=== PATIENT | male | born 1970 | race African-American/Black ===

== ENCOUNTER 2022-08-23 16:36 | Emergency (ER) | payer MEDICAID ==
[~2022-08-23] VITALS: Ht 177.8 cm; Wt 95.3 kg
[2022-08-23 16:40] VITALS: BP_SYST 163
--- NOTE | 2022-08-23 16:45 | NUR ---
Patient triaged and placed in waiting room. VSS and patient appears in no acute distress at this time. Accompanied by SELF, awaiting available bed, and MD notified of need for MSE.
--- NOTE | 2022-08-23 16:52 | NUR ---
PT STATES HE HAS HAD A COUGH FOR ABOUT A WEEK, HAS TAKEN UNKNOWN ANTIBIOTICS, STATES HE THINKS HE HAS PNEUMONIA. PT IS STAYING AT [facility] [place] FOR DETOX OFF METH AND COCAINE.
--- NOTE | 2022-08-23 19:46 | NUR ---
DR. TARANGO EXAMINING PATIENT IN TRIAGE
[2022-08-23] MEDS ORDERED: ALBMDI INH (19:52)
[2022-08-23] MEDS ORDERED: AUG875 PO (19:52)
[2022-08-23] MEDS ORDERED: GUAI-723 PO (19:52)
[2022-08-23] MEDS ORDERED: HYDROcodone/ACETAMIN 5-325 MG TAB (NORCO/ VICODIN) PO ONE (20:00)
[2022-08-23] MEDS ORDERED: ACETAMINOPHEN 500 MG TABLET PO ONE (20:00)
--- NOTE | 2022-08-23 20:00 | NUR ---
Patient to ER CHAIR 1 for evaluation.
--- NOTE | 2022-08-23 20:05 | NUR ---
PATIENT BROUGHT IN FROM [facility] COMPLAININGOF COUGH WITH LT SIDED CHEST WALL PAIN X 1 WEEK. DAILY SMOKER.
[2022-08-23] MEDS ORDERED: ALBUTEROL SULFATE 0.083% 2.5 MG/3 ML VIAL.NEB INH ONE (20:15)
--- NOTE | 2022-08-23 20:23 | NUR ---
RT at bedside administering breathing treatments.
[2022-08-23 20:49] VITALS: BP_SYST 142
--- NOTE | 2022-08-23 20:50 | NUR ---
Patient given written and verbal discharge instructions and verbalizes understanding. ER MD discussed with patient the results and treatment provided. Patient in stable condition. ID arm band removed. Rx of albuterol and augmentin given. Patient educated on pain management and to follow up with PMD. Pain Scale 0/10 Opportunity for questions provided and answered. Medication side effect fact sheet provided.
== END 2022-08-23 20:49 | disposition home or self-care (01) ==
LOC: SED 16:36
DX: J20.9 Acute bronchitis, unspecified (principal); R05.9 Cough, unspecified; R07.81 Pleurodynia; Z79.899 Other long term (current) drug therapy
CPT/HCPCS: 71045; 99283; J7613